=== PATIENT | female | born 1995 | race Caucasian/White ===

== ENCOUNTER 2023-07-18 08:48 | Emergency (ER) | payer BC, OTHER ==
[2023-07-18] MEDS ORDERED: Acetaminophen 500 MG TAB ONE (09:10)
[2023-07-18] MEDS ORDERED: Bacitracin 1 PK ONE (09:13)
== END 2023-07-18 09:50 | disposition home or self-care (01) ==
LOC: MADERS 08:48
DX: S92.422A Displaced fracture of distal phalanx of left great toe, initial encounter for closed fracture (principal); S90.212A Contusion of left great toe with damage to nail, initial encounter; X50.1XXA Overexertion from prolonged static or awkward postures, initial encounter
CPT/HCPCS: 11740